=== PATIENT | female | born 1960 | race American Indian/Alaskan Native ===

== ENCOUNTER 2021-05-28 11:07 | Emergency (ER) | payer MEDICARE ==
[2021-05-28 12:47] VITALS: BP 182/88
[2021-05-28 13:07] LABS: Bacteria,Urine 1+ /HPF (Negative); Bilirubin,Urine NEG (Negative); Blood,Urine SM (Negative); Color,Urine Yellow (Yellow); Mucus,Urine FEW /HPF; Urobilinogen,Urine < 2.0 mg/dL (<2.0)
--- NOTE | 2021-05-28 13:28 | Emergency Department Report ---
<MARLA CASTRO - Last Filed: 05/28/21 13:23> ED General Adult HPI - General Chief complaint: Urogenital-Female Stated complaint: UTI/DIABETES Time Seen by Provider: 05/28/21 13:22 Source: patient Mode of arrival: Ambulatory Limitations: No Limitations - History of Present Illness Initial comments: The patient was evaluated in the emergency department for symptoms described in the history of present illness. He/she was evaluated in the context of the global COVID-19 pandemic, which necessitated consideration that the patient might be at risk for infection with the virus that causes COVID-19. Institutional protocols and algorithms that pertain to the evaluation of patients at risk for COVID-19 are in a state of rapid change based on information released by regulatory bodies including the CDC and federal and state organizations. These policies and algorithms were followed during the patient's care in the emergency department. Please note that these policies, procedures and recommendations changed on a rapid basis. 61-year-old -[place] female presents to the emergency room reporting that she wants refills on her needles for her diabetic pen and strips. Patient states that she has come from [facility] went to [place] for a month and now has resided here with her son. Patient reports that she does not have a primary care provider at this time. She reports she has had some increased urination since March. She denies any dysuria no nausea no vomiting no abdominal pain or hematuria. Patient brings all her medications to the hospital and has been out of her metoprolol 100 mg for 4 months. It was noted that patient's blood pressure was at 182/88 and her blood sugar was 167. Patient is afebrile at this time and is satting at 99% on room air. Onset/Timin -: month(s) Severity scale (0 -10): 0 Consistency: intermittent Improves with: none Worsens with: none Associated Symptoms: other (Urine frequency x3 months) Treatments Prior to Arrival: none - Related Data Previous Rx's Medication Instructions Recorded Last Taken Type Blood Sugar Diagnostic [Glucose 1 each MC BID #50 strip 05/28/21 Unknown Rx Test Strip] Metoprolol [Lopressor TAB] 100 mg PO QDAY #30 tablet 05/28/21 Unknown Rx Pen Needle, Diabetic [Pen Needle] 1 each MC BID #100 dis.needle 05/28/21 Unknown Rx Allergies Allergy/AdvReac Type Severity Reaction Status Date / Time No Known Allergies Allergy Verified 05/28/21 12:47 ED Review of Systems Comment: All other systems reviewed and negative ED Past Medical Hx - Past Medical History Hx Diabetes: Yes - Medications Home Medications: Home Medications Medication Instructions Recorded Confirmed Last Taken Type Blood Sugar Diagnostic [Glucose 1 each MC BID #50 strip 05/28/21 Unknown Rx Test Strip] Metoprolol [Lopressor TAB] 100 mg PO QDAY #30 tablet 05/28/21 Unknown Rx Pen Needle, Diabetic [Pen Needle] 1 each MC BID #100 dis.needle 05/28/21 Unknown Rx ED Physical Exam - General Limitations: No Limitations General appearance: alert, in no apparent distress - Head Head exam: Present: atraumatic, normocephalic - Eye Eye exam: Present: normal appearance - ENT ENT exam: Present: mucous membranes moist - Neck Neck exam: Present: normal inspection - Respiratory Respiratory exam: Present: normal lung sounds bilaterally. Absent: respiratory distress - Cardiovascular Cardiovascular Exam: Present: regular rate, normal rhythm. Absent: systolic murmur, diastolic murmur, rubs, gallop - GI/Abdominal GI/Abdominal exam: Present: soft, normal bowel sounds - Extremities Exam Extremities exam: Present: normal inspection - Back Exam Back exam: Present: normal inspection - Neurological Exam Neurological exam: Present: alert, oriented X3 - Psychiatric Psychiatric exam: Present: normal affect, normal mood - Skin Skin exam: Present: warm, dry, intact, normal color. Absent: rash ED Medical Decision Making - Medical Decision Making 61-year-old -[place] female presents to the emergency room reporting that she wants refills on her needles for her diabetic pen and strips. Patient states that she has come from [facility] went to [place] for a month and now has resided here with her son. Patient reports that she does not have a primary care provider at this time. She reports she has had some increased urination since March. She denies any dysuria no nausea no vomiting no abdominal pain or hematuria. Patient brings all her medications to the hospital and has been out of her metoprolol 100 mg for 4 months. It was noted that patient's blood pressure was at 182/88 and her blood sugar was 167. Patient is afebrile at this time and is satting at 99% on room air. Patient's urinalysis is nonactionable. Patient's blood sugar is stable. Discussed with patient that she needs to find a primary care provider. I will refill her metoprolol 100 mg for 30 days and a referral for a primary care provider. ED Disposition Clinical Impression: Diabetes, Hypertension, Medication refill Disposition: HOME / SELF CARE / HOMELESS Is pt being admited?: No Does the pt Need Aspirin: No Condition: Good Instructions: Type 2 Diabetes Mellitus, Self Care, Adult, [id number], Type 2 Diabetes Mellitus, Diagnosis, Adult, [id number], Diabetes Mellitus Type 2 in Adults (ED), Hypertension (ED) Additional Instructions: Please take your meds as prescribed. Follow-up with a primary care provider I have listed several below for your convenience. Increase your fluid intake advance her diet as tolerated. Follow a Dash diet and diabetic diet Prescriptions: Blood Sugar Diagnostic [Glucose Test Strip] 1 each MC BID #50 strip Metoprolol [Lopressor TAB] 100 mg PO QDAY #30 tablet Pen Needle, Diabetic [Pen Needle] 1 each MC BID #100 dis.needle Referrals: JUDY WILLIS MD [Primary Care Provider] - 3-5 Days TU CARSON MD [Staff Physician] - 3-5 Days BELLO GAINES FNP [Referring] - 3-5 Days <YAS DOMINGO - Last Filed: 05/28/21 14:19> ED Review of Systems ROS: Stated complaint: UTI/DIABETES Other details as noted in HPI ED Course Vital Signs 05/28/21 12:46 Temperature 98.8 F Pulse Rate 95 H Respiratory 16 Rate Blood Pressure 182/88 [Right] O2 Sat by Pulse 99 Oximetry ED Medical Decision Making - Lab Data Vital Signs 05/28/21 12:46 Temperature 98.8 F Pulse Rate 95 H Respiratory 16 Rate Blood Pressure 182/88 [Right] O2 Sat by Pulse 99 Oximetry Lab Results 05/28/21 05/28/21 Range/Units 11:17 Unknown POC Glucose 167 H (70-105) mg/dL Urine Color Yellow (Yellow) Urine Turbidity Slightly-cloudy (Clear) Urine pH 5.0 (5.0-7.0) Ur Specific [place] 1.018 (1.003-1.030) Urine Protein 30 mg/dl (Negative) mg/dL Urine Glucose (UA) Neg (Negative) mg/dL Urine Ketones Neg (Negative) mg/dL Urine Blood Sm (Negative) Urine Nitrite Neg (Negative) Urine Bilirubin Neg (Negative) Urine Urobilinogen < 2.0 (<2.0) mg/dL Ur Leukocyte Esterase Sm (Negative) Urine WBC (Auto) 5.0 (0.0-6.0) /HPF Urine RBC (Auto) 6.0 (0.0-6.0) /HPF U Epithel Cells (Auto) 8.0 (0-13.0) /HPF Urine Bacteria (Auto) 1+ (Negative) /HPF Urine Mucus Few /HPF Critical care attestation.: If time is entered above; I have spent that time in minutes in the direct care of this critically ill patient, excluding procedure time. ED Disposition Is pt being admited?: No Does the pt Need Aspirin: No
== END 2021-05-28 14:02 | disposition home or self-care (01) ==
LOC: ED 11:07
DX: E11.8 Type 2 diabetes mellitus with unspecified complications (principal); I10 Essential (primary) hypertension; Z76.0 Encounter for issue of repeat prescription
CPT/HCPCS: 81001; 82962; 99283